=== PATIENT | male | born 2000 | race Hispanic/Latino ===

== ENCOUNTER 2023-06-22 12:08 | Emergency (ER) | payer OTHER ==
[~2023-06-22] VITALS: Ht 175.3 cm; Wt 78.0 kg
[2023-06-22 14:46] LABS: BASOPHILS # (AUTO) 0.05 K/uL (0.00-0.20); BASOPHILS % (AUTO) 1.1 % (0.0-5.0); EOSINOPHILS # (AUTO) 0.06 K/uL (0.00-0.70); EOSINOPHILS % (AUTO) 1.3 % (0.0-8.0); HEMATOCRIT 50.6 % (42-54); IMMATURE GRANULOCYTE ABSOLUTE 0.01 K/uL (0-1); LYMPHOCYTES # (AUTO) 1.4 K/uL (1.0-4.8); LYMPHOCYTES % (AUTO) 29.2 % (21.0-51.0); MEAN CORPUSCULAR HEMOGLOBIN 31.4 pg (27.0-33.0); MEAN CORPUSCULAR HGB CONC 34.6 g/dL (32.0-36.0); MEAN CORPUSCULAR VOLUME 90.7 fL (80-100); MONOCYTES # (AUTO) 0.3 K/uL (0.1-1.0); MONOCYTES % (AUTO) 5.9 % (3.0-13.0); NEUTROPHILS % (AUTO) 62.3 % (40.0-77.0); PLATELET COUNT (AUTO) 191 K/uL (130-400); RED BLOOD CELL COUNT(AUTO) 5.58 MIL/uL (4.50-6.20); RED CELL DISTRIBUTION WIDTH 11.6 % (11.0-15.5); WHITE BLOOD COUNT (AUTO) 4.7 K/uL (4.8-10.8)
[2023-06-22 14:50] LABS: APPEARANCE,URINE CLOUDY (CLEAR); BILIRUBIN,URINE NEGATIVE (NEGATIVE); COLOR,URINE LIGHT-YELLOW (YELLOW); GLUCOSE, URINE (UA) NEGATIVE (NEGATIVE); KETONES,URINE NEGATIVE (NEGATIVE); LEUKOCYTE ESTERASE ,URINE NEGATIVE Leu/uL (NEGATIVE); NITRATE,URINE NEGATIVE (NEGATIVE); OCCULT BLOOD,URINE NEGATIVE (NEGATIVE); PROTEIN,URINE NEGATIVE (NEGATIVE); UROBILINOGEN,URINE 0.2 mg/dL (0.2-1.0)
[2023-06-22 14:53] LABS: ADD UA MICROSCOPIC YES
[2023-06-22 14:54] LABS: CREATININE 0.9 mg/dL (0.5-1.5); POTASSIUM 4.3 mmol/L (3.5-5.1)
[2023-06-22 14:59] LABS: MUCUS,URINE RARE LPF (None Seen); SQUAMOUS EPITHELIAL CELL,UR RARE /HPF (0-2); UNCLASSIFIED CRYSTAL 48 /HPF (None Seen); YEAST,URINE BUDDING MANY /HPF (None Seen)
[2023-06-22] MEDS ORDERED: KETOROLAC 30MG VIAL (30MG/ML) IVP ONE (16:30)
[2023-06-22] MEDS ORDERED: IOHEXOL 350 MG/ML 100ML INFUS..BTL IV ONE (17:24)
[2023-06-22] MEDS ORDERED: MACR100 PO (19:36)
[2023-06-22] MEDS ORDERED: IBUP-2077 PO (19:36)
[2023-06-22] MEDS ORDERED: PHEN-776 PO (19:36)
[2023-06-22 19:59] VITALS: BP 128/68; PULSE 62; RESP 18; O2SAT 98
== END 2023-06-22 20:04 | disposition home or self-care (01) ==
LOC: EDH 12:08
DX: N39.0 Urinary tract infection, site not specified (principal); R30.0 Dysuria
CPT/HCPCS: 99285; 74177; 96374; 80048; 85025; 87088; 81001; 36415; J1885; Q9967

== ENCOUNTER → 2025-05-12 | Emergency (ER) | payer SELFPAY ==
[~2025-05-12] VITALS: Ht 175.3 cm; Wt 84.4 kg
[~2025-05-12] MED LIST: ACET-2247 PO; AZIT250T PO; COLC0.6T79 PO; FAMO20TA8 PO; IBUP-2077 PO; IBUP-2784 PO; PHEN-776 PO; PRED20TA3 PO
[2025-05-12 23:11] LABS: RAPID GROUP A STREP negative (NEGATIVE)
[2025-05-12 23:14] LABS: SARS-CoV-2, RNA, NAAT NEGATIVE SARS CoV-2 (NEGATIVE)
[2025-05-12 23:21] LABS: INFLUENZA TYPE A Negative For Type A (NEGATIVE); INFLUENZA TYPE B Negative For Type B (NEGATIVE)
--- NOTE | 2025-05-12 23:26 | ERN ---
ED Note History of Present Illness Stated Complaint: FEVER, BLOODY PHLEGM,HEADACHE, SORE THROAT Chief Complaint: Flu Symptoms Time Seen by MD: 22:48 Dictation: This is a 24-year-old male who presented to the emergency room with complaints of 2-3 days of generalized body aches fever cough and chest congestion. Also stated that he saw streaks of blood with sputum. No travel, no new pets. No other sick contacts. He had in the past fever with chills and chest pain and was diagnosed with pericarditis. No nausea vomitings diarrhea hematemesis or melena Temperature 99.1 pulse 99 respirations 16 blood pressure 126/71 with a pulse oximetry of 99% on room air Allergies: Coded Allergies: No Known Allergies (Unverified Allergy, Unknown, 06/22/23) Home Meds Active Scripts Colchicine (Colchicine) 0.6 Mg Tablet, 0.6 MG PO BID for 30 Days, #60 TAB Prov:ARCADIO MONTERO MD 07/25/24 Prednisone (Prednisone) 20 Mg Tablet, 1 TAB PO BID for pericarditis for 7 Days, #14 TAB 0 Refills Prov:ARCADIO MONTERO MD 07/25/24 Famotidine (Famotidine) 20 Mg Tablet, 20 MG PO BID for 10 Days, #20 TAB Prov:ARCADIO MONTERO MD 07/25/24 Acetaminophen (Tylenol) 325 Mg Tablet, 650 MG PO Q6HPRN PRN for MILD PAIN (1-3) for 10 Days, #30 TAB Prov:ARCADIO MONTERO MD 07/25/24 Ibuprofen (Ibuprofen 200 mg Tablet) 200 Mg Tablet, 400 MG PO BIDLUNCHDINNER, #60 TAB Prov:MATTHEW DELGADO 07/24/24 Ibuprofen (Ibuprofen 800 mg Tab) 800 Mg Tab, 800 MG PO Q8H PRN for fever or pain, #30 TAB 0 Refills Prov:JASON FRY 06/22/23 Phenazopyridine HCl (Pyridium) 200 Mg Tablet, 200 MG PO TID for 5 Days, #15 TAB Prov:JASON FRYP 06/22/23 Past Medical History Past Medical History: Other Additional Past Medical Hx: HEART MURMUR PERICARDITIS Surgical History: Appendectomy Family History: Negative Social History: Negative RN Note Reviewed/Agreed w/PFSH: Yes Review of System Dictation Constitutional: Positive for fever,chills, and flu-like symptoms Eyes: Negative for injury, pain,redness, and discharge ENT: Negative for injury,pain or swelling Cardiovascular: Negative for chest pain, palpitations, and edema Respiratory: Negative for shortness of breath, cough, and wheezing, Abdomen/GI: Negative for abdominal pain, nausea, vomiting, diarrhea, and constipation Back: Negative for injury and pain : Negative for injury, bleeding and discharge MS/Extremity: Negative for injury and deformity Skin: Negative for rash, and discoloration Neuro: Negative for headache, weakness, numbness, tingling, and seizure Psych: Negative for suicide ideation, homicidal ideation, and hallucinations Initial Vital Sign VS Vital Signs Date Time Temp Pulse Resp B/P (MAP) Pulse Ox O2 Delivery O2 Flow Rate FiO2 05/12/25 22:47 99.1 99 16 126/71 99 0 05/12/25 23:00 Room Air* 21 Physical Exam Dictation General: awake, alert, NAD Head/Face: Normocephalic, atraumatic Eyes: PERRL, EOMI, vision at baseline ENT: oral cavity clear, TMs clear, no signs of infection Neck: Trachea midline, supple, no nuchal rigidity Cardiovascular: RRR, normal S1/S2, No MRGs, no JVD Respiratory: CTAB, no respiratory distress, No rales or wheezes Abdomen: Soft, non-tender, non-distended, normal bowel sounds, no guarding or rebound. Skin: Warm, dry, normal turgor, no rash MS/Extremity: Pulses equal, no cyanosis, neurovascular intact, FROM Neuro: COAx4, GCS 15, strength 5/5, CN 2-12 intact, normal cerebellar exam, normal gait, Psych: Normal behavior, mood, and affect normal Extremities-trace edema without any palpable cords, Homans sign is negative Results (Laboratory/Radiology) Laboratory/Radiology Laboratory Tests Test 05/12/25 22:52 Influenza Type A Antigen Negative For Type A Influenza Type B Antigen Negative For Type B SARS-CoV-2, RNA, NAAT NEGATIVE SARS CoV-2 Group A Streptococcus Rapid negative (NEGATIVE) Labs Reviewed?: Yes ED Course ED Course Orders Procedure Category Date Status Time Influenza Type A & B, LAB 05/12/25 Complete Rapid 22:51 Rapid (Group A Strep) LAB 05/12/25 Complete 22:51 Covid Rna Naat LAB 05/12/25 Complete 22:51 Azithromycin PHA 05/13/25 Complete (Zithromax) 00:00 Prednisone 20mg Tab PHA 05/13/25 Complete (Deltasone/Orasone 2 00:00 Current Medications Medications (Trade) Dose Ordered Sig/Maura Route PRN Reason Start Time Stop Time Status Last Admin Dose Admin Azithromycin (Zithromax) 500 mg ONCE ONCE PO 05/13/25 00:00 05/13/25 00:01 DC 05/12/25 23:46 Prednisone (deltaSONE/ oraSONE 20MG TAB) 40 mg ONCE ONCE PO 05/13/25 00:00 05/13/25 00:01 DC 05/12/25 23:46 Vital Signs Date Time Temp Pulse Resp B/P (MAP) Pulse Ox O2 Delivery O2 Flow Rate FiO2 05/12/25 23:00 99.1 75 18 125/66 99 Room Air* 0 21 05/12/25 22:47 99.1 99 16 126/71 99 0 Medical Decision Making MDM Differential diagnosis: Influenza, COVID, RSV, streptococcal pharyngitis, otitis media, acute viral syndrome This is a 24-year-old male who presented to the emergency room with complaints of 2-3 days of generalized body aches fever cough and chest congestion. Also stated that he saw streaks of blood with sputum. No travel, no new pets. No other sick contacts. He had in the past fever with chills and chest pain and was diagnosed with pericarditis. No nausea vomitings diarrhea hematemesis or melena Temperature 99.1 pulse 99 respirations 16 blood pressure 126/71 with a pulse oximetry of 99% on room air Labs reviewed nasopharyngeal swabs negative for influenza COVID. I updated the patient on the negative test results and in view of cough sputum possibility of a viral bronchitis or perhaps bacterial. A dose of azithromycin and prednisone given here due to severe chest congestion and rhonchi. He will be discharged to home to follow up with his primary care physician Rationale: Tests considered and ordered secondary to shared decision making include: Nasopharyngeal swabs Previous outside records reviewed: Old ER visits. Risk of complication and/or morbidity or mortality of patient management: None Medications-Per medication reconciliation Need for hospitalization: Patient does not meet criteria for hospitalization. Need for emergency major/minor surgery: No There are no social concerns with this patient. Prescription drug management Prescriptions will include symptomatic care Patient's prior external medical records from other ER visits were reviewed by me as indicated. Prior testing and results from previous visits were reviewed. Prior tests were taken into account with medical decision making and resource utilization, independent historian/historians were used to obtain complete medical history. I independently interpreted the test that were performed, results were reviewed by me and considered findings on radiology if ordered. Medical management and examination interpretation discussions were had by me with other qualified healthcare professionals as indicated for the patient's care. DX & DISP Disposition: Discharge Departure Impression: Primary Impression: Acute bronchitis Additional Impression: URI (upper respiratory infection) Condition: Stable Scripts Prednisone (Prednisone) 20 Mg Tablet 1 TAB PO AD for 6 Days, #14 TAB 0 Refills TAKE 1 TAB BY MOUTH THREE TIMES PER DAY X3 DAYS, THEN TAKE 1 TAB BY MOUTH TWICE A DAY X2 DAYS, THEN TAKE 1 TAB BY MOUTH ONCE A DAY X1 DAY. Prov: ANDERSON COLBERT MD 05/13/25 Azithromycin (Zithromax) 250 Mg Tablet 1 TAB PO AD for 5 Days, #6 TAB 0 Refills 2 the first day followed by 1 for days 2-5 Prov: ANDERSON COLBERT MD 05/13/25 Additional Instructions: Patient and the caregiver have been informed of all the diagnostic tests and the imaging conducted during the today's visit to the emergency room and has verbalized understanding of the results I have personally reviewed and interpreted all diagnostic exams performed here in the ER today as well as the vital signs documented by the nursing staff. The patient is now being discharged to home and should follow up with the primary care physician or the specialist as directed by the ER staff. Referrals: SELF,REFERRAL (PCP) ANDERSON COLBERT MD May 12, 2025 23:26
[2025-05-12] MEDS: AZITHROMYCIN 250 MG TABLET PO ONE (23:46)
[2025-05-13 00:59] VITALS: BP 132/62; PULSE 72; RESP 18; TEMP 98.5; O2SAT 99
== END ==
LOC: EDH 22:46
DX: J20.9 Acute bronchitis, unspecified (principal); J06.9 Acute upper respiratory infection, unspecified; Z20.822 Contact with and (suspected) exposure to COVID-19; Z79.52 Long term (current) use of systemic steroids; Z79.899 Other long term (current) drug therapy; Z90.49 Acquired absence of other specified parts of digestive tract
CPT/HCPCS: 87635; 87804; 87880; 99283